=== PATIENT | female | born 1975 | race Caucasian/White ===

== ENCOUNTER 2022-02-05 02:18 | Inpatient (IN) | payer OTHER ==
[2022-02-05] MEDS ORDERED: SODIUM CHLORIDE 0.9% 1,000 ML IV STA ×2 (02:51→03:38)
[2022-02-05] MEDS ORDERED: KETOROLAC 15 MG/ML 1 ML VIAL IVP STA (02:51)
[2022-02-05] MEDS ORDERED: MORPHINE SULFATE 4 MG/ML SYRINGE IV STA (02:51)
[2022-02-05] MEDS ORDERED: ONDANSETRON 4 MG/2 ML VIAL IVP STA (02:51)
--- NOTE | 2022-02-05 02:53 | ED ---
Abdominal Pain HPI - General Chief Complaint: Abdominal Pain Stated Complaint: Back Pain, Nausea Time Seen by Provider: 02/05/22 02:20 Source: patient, RN notes reviewed, old records reviewed Mode of arrival: ambulatory Limitations: no limitations - History of Present Illness Initial Comments: This is a 46-year-old female DF for evaluation currently. Patient Dese for evaluation of abdominal pain flank pain. Severe with nausea vomiting. Sadness of pain tonight. No prior history of similar pain. Patient was seen at urgent care from an outside facility and transferred to our ER for evaluation regarding kidney stone. A she has CT scans showing positive kidney stone findings. No fevers persistent nausea vomiting pain is mildly improved MD Complaint: abdominal pain, flank pain -: hour(s) Location: RLQ, epigastric Radiation: RLQ, R flank Migration to: RLQ Severity: moderate Severity scale (1-10): 6 Quality: sharp Consistency: constant Improves With: nothing Worsens With: nothing Context: other (none) Associated Symptoms: nausea - Related Data Allergies Allergy/AdvReac Type Severity Reaction Status Date / Time Penicillins Allergy Rash/Hives Verified 02/05/22 02:28 Review of Systems ROS Statement: Those systems with pertinent positive or pertinent negative responses have been documented in the HPI. ROS Other: All systems not noted in ROS Statement are negative. Past Medical History Additional Past Medical History / Comment(s): kidney stone History of Any Multi-Drug Resistant Organisms: None Reported Past Surgical History: Section, Cholecystectomy, Tubal Ligation Additional Past Surgical History / Comment(s): uterine ablation Past Psychological History: No Psychological Hx Reported Smoking Status: Former smoker Past Alcohol Use History: None Reported Past Drug Use History: None Reported General Exam Limitations: no limitations General appearance: alert, in no apparent distress Head exam: Present: atraumatic, normocephalic, normal inspection Eye exam: Present: normal appearance, PERRL, EOMI. Absent: scleral icterus, conjunctival injection, periorbital swelling ENT exam: Present: normal exam, mucous membranes moist Neck exam: Present: normal inspection. Absent: tenderness, meningismus, lym phadenopathy Respiratory exam: Present: normal lung sounds bilaterally. Absent: respiratory distress, wheezes, rales, rhonchi, stridor Cardiovascular Exam: Present: regular rate, normal rhythm, normal heart sounds. Absent: systolic murmur, diastolic murmur, rubs, gallop, clicks GI/Abdominal exam: Present: soft, normal bowel sounds. Absent: distended, tenderness, guarding, rebound, rigid Extremities exam: Present: normal inspection, full ROM, normal capillary refill. Absent: tenderness, pedal edema, joint swelling, calf tenderness Back exam: Present: normal inspection Neurological exam: Present: alert, oriented X3, CN II-XII intact Psychiatric exam: Present: normal affect, normal mood Skin exam: Present: warm, dry, intact, normal color. Absent: rash Course Vital Signs 02/05/22 02:23 Temperature 98.6 F Pulse Rate 99 Respiratory 22 Rate Blood Pressure 119/69 O2 Sat by Pulse 100 Oximetry - Reevaluation(s) Reevaluation #1: 02/05/22 03:42 Medical record is reviewed Reevaluation #2: 02/05/22 03:42 Patient has adequate current pain control Reevaluation #3: 02/05/22 03:42 Patient informed results and questions answered - Consultations Consultation #1: Spoke with sound who agrees to admit this patient Medical Decision Making - Medical Decision Making 6 female DF for evaluation of severe abdominal pain of the pain is improved now he doesn't significantly large kidney stone as well as significant pancreatitis. Patient be admitted for pain control and pills status - Lab Data Result diagrams: 02/05/22 03:08 02/05/22 03:08 Lab Results 02/05/22 02/05/22 Range/Units 03:08 03:08 WBC 13.0 H (3.8-10.6) k/uL RBC 4.43 (3.80-5.40) m/uL Hgb 13.5 (11.4-16.0) gm/dL Hct 40.1 (34.0-46.0) % MCV 90.4 (80.0-100.0) fL MCH 30.4 (25.0-35.0) pg MCHC 33.7 (31.0-37.0) g/dL RDW 13.4 (11.5-15.5) % Plt Count 234 (150-450) k/uL MPV 7.9 Neutrophils % 86 % Lymphocytes % 8 % Monocytes % 5 % Eosinophils % 1 % Basophils % 1 % Neutrophils # 11.2 H (1.3-7.7) k/uL Lymphocytes # 1.0 (1.0-4.8) k/uL Monocytes # 0.6 (0-1.0) k/uL Eosinophils # 0.1 (0-0.7) k/uL Basophils # 0.1 (0-0.2) k/uL Sodium 134 L (137-145) mmol/L Potassium 3.6 (3.5-5.1) mmol/L Chloride 107 (98-107) mmol/L Carbon Dioxide 17 L (22-30) mmol/L Anion Gap 10 mmol/L BUN 19 H (7-17) mg/dL Creatinine 0.92 (0.52-1.04) mg/dL Est GFR (CKD-EPI)AfAm 87 (>60 ml/min/1.73 sqM) Est GFR (CKD-EPI)NonAf 75 (>60 ml/min/1.73 sqM) Glucose 123 H (74-99) mg/dL Calcium 8.7 (8.4-10.2) mg/dL Total Bilirubin 1.4 H (0.2-1.3) mg/dL AST 59 H (14-36) U/L ALT 33 (4-34) U/L Alkaline Phosphatase 65 (38-126) U/L Total Protein 6.5 (6.3-8.2) g/dL Albumin 3.9 (3.5-5.0) g/dL Amylase 308 H* (30-110) U/L Lipase 1709 H (23-300) U/L - Radiology Data Radiology results: report reviewed (CT head and pelvis does show 6 x 1.5 mm kidney stone) Disposition Clinical Impression: Acute pancreatitis, Abdominal pain, Calculus of kidney Disposition: ADMITTED IP TO THIS HOSP Condition: Good Is patient prescribed a controlled substance at d/c from ED?: No Referrals: Alyssa Chatterjee DO [Primary Care Provider] - 1-2 days
[2022-02-05 03:17] LABS: Basophils # (A) 0.1 k/uL (0-0.2); Basophils % (A) 1 %; Eosinophils # (A) 0.1 k/uL (0-0.7); Eosinophils % (A) 1 %; HCT 40.1 % (34.0-46.0); HGB 13.5 gm/dL (11.4-16.0); Lymphocytes % (A) 8 %; MCH 30.4 pg (25.0-35.0); MCHC 33.7 g/dL (31.0-37.0); MCV 90.4 fL (80.0-100.0); Mean Platelet Volume 7.9; Monocytes # (A) 0.6 k/uL (0-1.0); Monocytes % (A) 5 %; Neutrophils # (A) 11.2 k/uL (1.3-7.7); Neutrophils % (A) 86 %; Platelet Count 234 k/uL (150-450); RBC 4.43 m/uL (3.80-5.40); RDW 13.4 % (11.5-15.5)
[2022-02-05 03:29] LABS: Albumin 3.9 g/dL (3.5-5.0); Calcium 8.7 mg/dL (8.4-10.2); Potassium 3.6 mmol/L (3.5-5.1); Total Bilirubin 1.4 mg/dL (0.2-1.3); Total Protein 6.5 g/dL (6.3-8.2)
[2022-02-05] MEDS ORDERED: SODIUM CHLORIDE 0.9% 500 ML 500 ML IV STA (03:38)
[2022-02-05] MEDS ORDERED: LORazepam 2 MG/ML INJ IV PRN (03:39)
[2022-02-05] MEDS ORDERED: NALOXONE 0.4 MG/ML 1 ML VIAL IV PRN (03:39)
[2022-02-05] MEDS ORDERED: MORPHINE SULFATE 4 MG/ML SYRINGE IV PRN (03:39)
[2022-02-05 04:57] LABS: Appearance,Urine Cloudy (Clear); Bacteria,Urine Occasional /hpf; Bilirubin,Urine Negative (Negative); Blood,Urine Small (Negative); Color,Urine Yellow; Glucose,Urine (UA) Negative (Negative); Ketones,Urine Negative (Negative); Leukocyte Esterase,Urine Large (Negative); Mucus,Urine Rare /hpf; Nitrite,Urine Negative (Negative); PH, Urine 5.5 (5.0-8.0); Protein,Urine Negative (Negative); RBC,Urine 4 /hpf (0-5); Specific Gravity,Urine 1.008 (1.001-1.035); Squamous Epithelial Cell,Urine 5 /hpf (0-4); Urobilinogen,Urine <2.0 mg/dL (<2.0); WBC,Urine 43 /hpf (0-5)
[2022-02-05] MEDS: SODIUM CHLORIDE 0.9% 1,000 ML IV SCH ×3 (05:42→22:20)
[2022-02-05] MEDS: PANTOPRAZOLE 40 MG/10 ML VIAL IV SCH (08:19)
--- NOTE | 2022-02-05 10:05 | P.GSCN ---
History of Present Illness Consult date: 02/05/22 Reason for Consult: Right renal colic Requesting physician: Lauri Perdomo History of present illness: The patient is a 46-year-old white female with no prior history of urolithiasis. Yesterday morning, she experienced acute onset of right flank and mid back pain, radiating to the right groin. She has experienced associated nausea. She was initially evaluated at the [facility] [place]. A CT scan of th e abdomen and pelvis showed moderate right hydroureteronephrosis due to a 6 x 15 mm elongated right distal ureteral calculus. The study also revealed what appears to be 2 right lower pole renal calculi measuring 5 mm each. Review of Systems - Constitutional Reports chills, Denies fever - Gastrointestinal Reports abdominal pain, Reports nausea - Genitourinary Genitourinary: Reports flank pain, Reports urgency, Denies dysuria, Denies hematuria Past Medical History Additional Past Medical History / Comment(s): kidney stone History of Any Multi-Drug Resistant Organisms: None Reported Past Surgical History: Section, Cholecystectomy, Tubal Ligation, Uterine Ablation Additional Past Surgical History / Comment(s): uterine ablation Past Psychological History: No Psychological Hx Reported Smoking Status: Former smoker Past Alcohol Use History: None Reported Past Drug Use History: None Reported Medications and Allergies Allergies Allergy/AdvReac Type Severity Reaction Status Date / Time Penicillins Allergy Rash/Hives Verified 02/05/22 02:28 Surgical - Exam Vital Signs Temp Pulse Resp BP Pulse Ox 98.6 F 99 22 119/69 100 02/05/22 02:23 02/05/22 02:23 02/05/22 02:23 02/05/22 02:23 02/05/22 02:23 - General well developed, well nourished, no distress - Neck no masses, trachea midline - Respiratory normal respiratory effort - Abdomen Soft, non-distended, with no palpable mass. Mild right lower quadrant tenderness to palpation, without guarding or rebound. There is also moderate right CVA tenderness. - Psychiatric oriented to time, oriented to person, oriented to place, speech is normal, memory intact Results - Labs 02/05/22 03:08 02/05/22 03:08 Abnormal Lab Results - Last 24 Hours (Table) 02/05/22 02/05/22 02/05/22 Range/Units 03:08 03:08 04:43 WBC 13.0 H (3.8-10.6) k/uL Neutrophils # 11.2 H (1.3-7.7) k/uL Sodium 134 L (137-145) mmol/L Carbon Dioxide 17 L (22-30) mmol/L BUN 19 H (7-17) mg/dL Glucose 123 H (74-99) mg/dL Total Bilirubin 1.4 H (0.2-1.3) mg/dL AST 59 H (14-36) U/L Amylase 308 H* (30-110) U/L Lipase 1709 H (23-300) U/L Urine Appearance Cloudy H (Clear) Urine Blood Small H (Negative) Ur Leukocyte Esterase Large H (Negative) Urine WBC 43 H (0-5) /hpf Ur Squamous Epith Cells 5 H (0-4) /hpf Urine Bacteria Occasional H (None) /hpf Urine Mucus Rare H (None) /hpf Diabetes panel 02/05/22 Range/Units 03:08 Sodium 134 L (137-145) mmol/L Potassium 3.6 (3.5-5.1) mmol/L Chloride 107 (98-107) mmol/L Carbon Dioxide 17 L (22-30) mmol/L BUN 19 H (7-17) mg/dL Creatinine 0.92 (0.52-1.04) mg/dL Glucose 123 H (74-99) mg/dL Calcium 8.7 (8.4-10.2) mg/dL AST 59 H (14-36) U/L ALT 33 (4-34) U/L Alkaline Phosphatase 65 (38-126) U/L Total Protein 6.5 (6.3-8.2) g/dL Albumin 3.9 (3.5-5.0) g/dL Calcium panel 02/05/22 Range/Units 03:08 Calcium 8.7 (8.4-10.2) mg/dL Albumin 3.9 (3.5-5.0) g/dL Pituitary panel 02/05/22 Range/Units 03:08 Sodium 134 L (137-145) mmol/L Potassium 3.6 (3.5-5.1) mmol/L Chloride 107 (98-107) mmol/L Carbon Dioxide 17 L (22-30) mmol/L BUN 19 H (7-17) mg/dL Creatinine 0.92 (0.52-1.04) mg/dL Glucose 123 H (74-99) mg/dL Calcium 8.7 (8.4-10.2) mg/dL Adrenal panel 02/05/22 Range/Units 03:08 Sodium 134 L (137-145) mmol/L Potassium 3.6 (3.5-5.1) mmol/L Chloride 107 (98-107) mmol/L Carbon Dioxide 17 L (22-30) mmol/L BUN 19 H (7-17) mg/dL Creatinine 0.92 (0.52-1.04) mg/dL Glucose 123 H (74-99) mg/dL Calcium 8.7 (8.4-10.2) mg/dL Total Bilirubin 1.4 H (0.2-1.3) mg/dL AST 59 H (14-36) U/L ALT 33 (4-34) U/L Alkaline Phosphatase 65 (38-126) U/L Total Protein 6.5 (6.3-8.2) g/dL Albumin 3.9 (3.5-5.0) g/dL - Imaging CT scan - abdomen: report reviewed, image reviewed Assessment and Plan (1) Calculus of kidney Current Visit: Yes Status: Acute Code(s): N20.0 - CALCULUS OF KIDNEY SNOMED Code(s): 93721546 (2) Calculus of ureter Current Visit: Yes Status: Acute Code(s): N20.1 - CALCULUS OF URETER SNOMED Code(s): 08236745 (3) Hydronephrosis with renal and ureteral calculous obstruction Current Visit: Yes Status: Acute Code(s): N13.2 - HYDRONEPHROSIS WITH RENAL AND URETERAL CALCULOUS OBSTRUCTION SNOMED Code(s): 816335408 Plan: The patient has right hydronephrosis due to an obstructing right distal ureteral calculus. She also has additional right renal calculi. Amylase and lipase levels are elevated, consistent with pancreatitis. She has previously undergone a cholecystectomy and denies excessive alcohol consumption. Urinalysis is consistent with a possible UTI. A urine culture has been ordered, and she has received Rocephin. I have advised her to undergo cystoscopy with right ureteral stent insertion to relieve her right ureteral obstruction. The rationale for this has been discussed with her in detail, along with potential risks which include anesthesia, bleeding, infection, inability to place the stent, and ureteral injury. She is aware of the possible need for nephrostomy tube placement. She understands that she would subsequently require a secondary procedure consisting of ureteroscopy with laser lithotripsy at the time of stent removal. Time with Patient: Greater than 30
[2022-02-05] MEDS ORDERED: SODIUM CHLORIDE 0.9% 800 ML IV ONE (11:35)
--- NOTE | 2022-02-05 12:01 | P.OP ---
Date of Procedure: 02/05/22 Preoperative Diagnosis: Right hydronephrosis secondary to right ureteral calculus Postoperative Diagnosis: Same Procedure(s) Performed: Cystoscopy, right ureteral stent insertion Anesthesia: BELINDA Surgeon: Sachin Quick Estimated Blood Loss (ml): 0 IV fluids (ml): 200 Pathology: none sent Condition: stable Disposition: PACU Indications for Procedure: The patient is a 46-year-old white female with no prior history of urolithiasis. Yesterday morning, she experienced acute onset of right flank and mid back pain, radiating to the right groin. She has experienced associated nausea. She was initially evaluated at the [facility]. A CT scan of the abdomen and pelvis showed moderate right hydroureteronephrosis due to a 6 x 15 mm elongated right distal ureteral calculus. The study also revealed what appears to be 2 right lower pole renal calculi measuring 5 mm each. Urinalysis is suggestive of a possible UTI, and her pancreatic enzymes are elevated. She now comes for stent placement. Operative Findings: Impacted right ureteral calculus. Cloudy urine drained from right renal pelvis. Description of Procedure: The patient was taken to the operating room and placed in the dorsolithotomy position, with legs supported in Christopher stirrups. The external genitalia was prepped and draped sterilely. The 30 lens was used to introduce the 22-Gabonese Stortz cystoscopic sheath through the urethra and into the bladder under direct vision. The bladder was examined in its entirety. Both ureteral orifices were of normal anatomic location and configuration. No tumors or foreign bodies were seen. An angle-tip 0.035 inch Glidewire was passed through the cystoscope. The right ureteral orifice was cannulated, and the Glidewire was slowly advanced up to the renal pelvis. Resistance was met as the Glidewire passed beyond the obstructing calculus. A 22 cm, 6-Gabonese double-J ureteral stent was placed over the wire. Proper stent positioning was verified fluoroscopically and endoscopically. Cloudy urine drained through the stent. With the beak of the cystoscope immediately adjacent to the distal end of the stent, urine was collected and sent for culture and sensitivity. The bladder was emptied and the cystoscope removed. The patient tolerated the procedure well was taken to the recovery room in stable condition.
[2022-02-05] MEDS ORDERED: SODIUM CHLORIDE 0.9% 1,000 ML IV ONE ×2 (12:40)
[2022-02-05] MEDS ORDERED: MELATONIN 3 MG TABLET PO PRN (17:04)
[2022-02-05] MEDS ORDERED: CALCIUM CARBONATE 500 MG CHEWABLE PO PRN (17:04)
[2022-02-05] MEDS ORDERED: LACTULOSE 20 GM/30 ML CUP PO PRN (17:04)
--- NOTE | 2022-02-05 17:10 | P.HPIM ---
History of Present Illness H&P Date: 02/05/22 Chief Complaint: Right abdominal pain This is a very pleasant 46-year-old patient who follows with Dr. Alyssa Chatterjee. Patient is otherwise remarkable good health. Yesterday morning patient started having pain in the right flank posteriorly and pain started drinking down to the groin area. Progressively got worse. Also developed some nausea. Denied any fever and chills. Progressively got worse decided to come down. Computed tomography scan did show a stone in the right greater and the right kidney. Patient also having urinary frequency. Today patient was taken to the OR by Dr. wasserman. Right double-J stent was placed. Infected appearing urine was noted. Culture was sent. Patient was also was found to have an elevated amylase and lipase. Has no obvious risk factors. Patient was initially evaluated at [facility]. Computed tomography scan showed moderate right-sided hydronephrosis due to 6 x 15 mm elongated right distal ureter calculus. And a right lower pole renal calculi 5 mm each. Review of systems: GEN.: Tired EYES: None HEENT: None NECK: None RESPIRATORY: None CARDIOVASCULAR: None GASTROINTESTINAL: As above] GENITOURINARY: As above MUSCULOSKELETAL: None LYMPHATICS: None HEMATOLOGICAL: None PSYCHIATRY: None NEUROLOGICAL: None Past medical history to include: Kidney stone Social history: . Homemaker. No history of smoking and alcohol Family history: Reviewed, noncontributory to presentation Physical examination: VITAL SIGNS: 98.2, 88, 16, 98/67, 97% room air GENERAL: BMI 40.1, laying in bed, awake slightly tired. EYES: Pupils equal. Conjunctiva normal. HEENT: External appearance of nose and ears normal, oral cavity grossly normal. NECK: JVD not raised; masses not palpable. HEART: First and second heart sounds are normal; no edema. LUNGS: Respiratory rate normal; clear to auscultation. ABDOMEN: Soft, nontender, liver spleen not palpable, no masses palpable. PSYCH: Alert and oriented x3; mood and affect normal. MUSCULOSKELETAL:No Clubbing/cyanosis;muscles-grossly intact NEUROLOGICAL: Cranial nerves grossly intact; no facial asymmetry, power and sensation grossly intact. LYMPHATICS: No lymph nodes palpable in the axilla and neck INVESTIGATIONS, reviewed in the clinical context: White count 13 hemoglobin 13.5 platelets 234 potassium 3.6 BUN 19 creatinine 0.9 to total bilirubin 1.4 AST 59 ALT 33 amylase 308 lipase 11/19/2008 UA positive for leukoesterase WBC Assessment and plan: -Acute right moderate hydro unilateral-nephrosis from a 6 x 15 mm elongated right distal ureteral calculus. Status post double-J stent placement by Dr. wasserman. -Acute pyelonephritis/UTI from obstructive calculi in the right ureter. Cultures pending. IV ceftriaxone. IV fluid -Acute pancreatitis Rule out gallstone. Ultrasound gallbladder -Hyper bilirubin anemia could be from starvation. Check ultrasound gallbladder to rule out gallstones. In the setting of acute pancreatitis -Morbid obesity BMI 40.1 Weight loss measures Full liquid diet. Low-fat. IV ceftriaxone. IV fluids. Status post double-J stent placement. Gallbladder ultrasound. Given the complexity and severity of patient's condition expect the patient to be in the hospital at least for 2 overnights Past Medical History Additional Past Medical History / Comment(s): kidney stone History of Any Multi-Drug Resistant Organisms: None Reported Past Surgical History: Section, Cholecystectomy, Tubal Ligation, Uterine Ablation Additional Past Surgical History / Comment(s): uterine ablation Past Psychological History: No Psychological Hx Reported Smoking Status: Former smoker Past Alcohol Use History: None Reported Past Drug Use History: None Reported Medications and Allergies Home Medications Medication Instructions Recorded Confirmed Type No Known Home Medications 02/05/22 02/05/22 History Allergies Allergy/AdvReac Type Severity Reaction Status Date / Time Penicillins Allergy Rash/Hives Verified 02/05/22 10:58 Physical Exam Vitals: Vital Signs Temp Pulse Pulse Resp BP BP Pulse Ox 02/05/22 08:23 111 H 02/05/22 08:00 99.1 F 111 H 17 117/71 96 02/05/22 05:58 98.6 F 103 H 16 112/49 100 02/05/22 04:54 70 16 124/66 99 02/05/22 02:23 98.6 F 99 22 119/69 100 Intake and Output 02/04/22 02/05/22 02/05/22 22:59 06:59 14:59 Other: Voiding Method Toilet # Voids 0 Weight 99.337 kg Results CBC & Chem 7: 02/05/22 03:08 02/05/22 03:08 Labs: Abnormal Lab Results - Last 24 Hours (Table) 02/05/22 02/05/22 02/05/22 Range/Units 03:08 03:08 04:43 WBC 13.0 H (3.8-10.6) k/uL Neutrophils # 11.2 H (1.3-7.7) k/uL Sodium 134 L (137-145) mmol/L Carbon Dioxide 17 L (22-30) mmol/L BUN 19 H (7-17) mg/dL Glucose 123 H (74-99) mg/dL Total Bilirubin 1.4 H (0.2-1.3) mg/dL AST 59 H (14-36) U/L Amylase 308 H* (30-110) U/L Lipase 1709 H (23-300) U/L Urine Appearance Cloudy H (Clear) Urine Blood Small H (Negative) Ur Leukocyte Esterase Large H (Negative) Urine WBC 43 H (0-5) /hpf Ur Squamous Epith Cells 5 H (0-4) /hpf Urine Bacteria Occasional H (None) /hpf Urine Mucus Rare H (None) /hpf Thrombosis Risk Factor Assmnt - Choose All That Apply Any of the Below Risk Factors Present?: Yes Each Factor Represents 1 point: Age 41-60 years, Obesity (BMI >25) Thrombosis Risk Factor Assessment Total Risk Factor Score: 2 Thrombosis Risk Factor Assessment Level: Low Risk
[2022-02-05] MEDS: ENOXAPARIN 40 MG/0.4 ML SYRINGE SQ SCH (17:28)
--- NOTE | 2022-02-05 18:58 | US ---
EXAMINATION TYPE: US abdomen limited DATE OF EXAM: 02/05/2022 COMPARISON: CT CLINICAL HISTORY: Elevated bilirubin/acute pancreatitis. Elevated labs, GB removed EXAM MEASUREMENTS: Liver Length: 16.2 cm CBD: 0.3 cm Right Kidney: 11.0 x 5.0 x 4.5 cm Pancreas: wnl, tail obscured by overlying bowel gas Liver: Visualized portions appeared wnl Gallbladder: Surgically absent Evidence for sonographic Singh's sign: No CBD: wnl Right Kidney: Moderate hydro, lower pole gassed out IMPRESSION: Cholecystectomy. No dilated ducts.
[2022-02-05] MEDS: ACETAMINOPHEN TAB 325 MG TAB PO PRN (20:08)
[2022-02-05] MEDS: ONDANSETRON 4 MG/2 ML VIAL IVP PRN (20:09)
[2022-02-06 05:49] LABS: ALT 162 U/L (4-34); AST 133 U/L (14-36); African American GFR (CKD) >90 (>60 ml/min/1.73 sqM); Albumin 2.7 g/dL (3.5-5.0); Albumin/Globulin Ratio 1.1; Alkaline Phosphatase 118 U/L (38-126); Anion Gap 4 mmol/L; Blood Urea Nitrogen 8 mg/dL (7-17); Calcium 7.8 mg/dL (8.4-10.2); Carbon Dioxide 19 mmol/L (22-30); Chloride 113 mmol/L (98-107); Globulin 2.5 g/dL; Glucose 95 mg/dL (74-99); Non-African American GFR(CKD) >90 (>60 ml/min/1.73 sqM); Potassium 3.8 mmol/L (3.5-5.1); Sodium 136 mmol/L (137-145); Total Bilirubin 2.4 mg/dL (0.2-1.3); Total Protein 5.2 g/dL (6.3-8.2)
[2022-02-06] MEDS: ENOXAPARIN 40 MG/0.4 ML SYRINGE SQ SCH (07:27)
[2022-02-06] MEDS: SODIUM CHLORIDE 0.9% 1,000 ML IV SCH ×3 (08:37→21:11)
[2022-02-06] MEDS: PANTOPRAZOLE 40 MG/10 ML VIAL IV SCH (08:44)
--- NOTE | 2022-02-06 10:53 | P.PN ---
Progress Note - Text Progress Note Date: 02/06/22 The patient states that she is feeling better. She has a low-grade fever. Urine cultures are pending. Her liver function tests today are worse than they were yesterday. Pancreatic enzymes have not been repeated. Hepatic ultrasound was normal. From a urologic standpoint, I would suggest she continue to receive Rocephin until the urine cultures are completed. I discussed with her that following discharge, once she has completely recovered, arrangements will be made for her to undergo cystoscopy, right ureteral stent removal, right ureteroscopy with Holmium laser lithotripsy to remove her ureteral calculus and renal calculi.
[2022-02-06] MEDS ORDERED: MIDAZOLAM 2 MG/2 ML VIAL ONE (11:30)
[2022-02-06] MEDS ORDERED: PROPOFOL 10 MG/ML 20 ML VIAL IV ONE (11:30)
[2022-02-06] MEDS ORDERED: LIDOCAINE 1% INJ 10MG/ML (20 ML MDV) ONE (11:30)
[2022-02-06] MEDS ORDERED: fentaNYL (PF) 50 MCG/ML 2 ML AMP ONE (11:30)
[2022-02-06 11:55] LABS: Basophils # (A) 0.04 X 10*3/uL (0.00-0.10); Basophils % (A) 0.7 %; Eosinophils # (A) 0.02 X 10*3/uL (0.04-0.35); Eosinophils % (A) 0.4 %; HCT 32.9 % (37.2-46.3); HGB 10.5 g/dL (12.0-15.0); Immature Grans, Automated 0.4 %; Lymphocytes # (A) 0.61 X 10*3/uL (0.90-5.00); Lymphocytes % (A) 11.1 %; MCH 29.8 pg (27.0-32.0); MCHC 31.9 g/dL (32.0-37.0); MCV 93.5 fL (80.0-97.0); Mean Platelet Volume 11.3 fL (9.5-12.2); Monocytes # (A) 0.47 X 10*3/uL (0.20-1.00); Monocytes % (A) 8.5 %; NRBC Per 100 WBC 0 /100 WBCS (0.0-0.0); Neutrophils # (A) 4.35 X 10*3/uL (1.80-7.70); Neutrophils % (A) 78.9 %; Platelet Count 175 X 10*3/uL (140-440); RBC 3.52 X 10*6/uL (4.10-5.20); RDW 13.7 % (11.5-14.5); WBC 5.51 X 10*3/uL (4.50-10.00)
[2022-02-06 11:58] LABS: Amylase 26 U/L (23-121); Lipase 11 U/L (14-63)
--- NOTE | 2022-02-06 14:10 | FL ---
Fluoroscopy INDICATION: Pain FINDINGS: Fluoroscopy time: 25 seconds. Images obtained: 1. IMPRESSIONS: 1. Documentation of fluoroscopy.
[2022-02-06] MEDS: ACETAMINOPHEN TAB 325 MG TAB PO PRN (14:47)
--- NOTE | 2022-02-06 15:18 | P.PN ---
Progress Note - Text Progress Note Date: 02/06/22 Chief Complaint: Right abdominal pain This is a very pleasant 46-year-old patient who follows with Dr. Alyssa Chatterjee. Patient is otherwise remarkable good health. Yesterday morning patient started having pain in the right flank posteriorly and pain started drinking down to the groin area. Progressively got worse. Also developed some nausea. Denied any fever and chills. Progressively got worse decided to come down. Computed tomography scan did show a stone in the right greater and the right kidney. Patient also having urinary frequency. Today patient was taken to the OR by Dr. wasserman. Right double-J stent was placed. Infected appearing urine was noted. Culture was sent. Patient was also was found to have an elevated amylase and lipase. Has no obvious risk factors. Patient was initially evaluated at [facility]. Computed tomography scan showed moderate right-sided hydronephrosis due to 6 x 15 mm elongated right distal ureter calculus. And a right lower pole renal calculi 5 mm each. February 06: Abdominal pain better. Did tolerate a full liquid diet. 2 nausea vomiting. Some worsening of liver function. Cultures pending. IV ceftriaxone. Discussed with patient. Low-grade fever Active Medications Acetaminophen (Acetaminophen Tab 325 Mg Tab) 650 mg PO Q6HR PRN PRN Reason: Mild Pain or Fever > 100.5 Last Admin: 02/06/22 14:47 Dose: 650 mg Documented by: Calcium Carbonate/Glycine (Calcium Carbonate 500 Mg Chewable) 1,000 mg PO Q4HR PRN PRN Reason: Dyspepsia Enoxaparin Sodium (Enoxaparin 40 Mg/0.4 Ml Syringe) 40 mg SQ DAILY [facility] Last Admin: 02/06/22 07:27 Dose: 40 mg Documented by: Sodium Chloride (Saline 0.9%) 1,000 mls @ 75 mls/hr IV .[id number] [facility] Last Admin: 02/06/22 08:46 Dose: Not Given Documented by: Ceftriaxone Sodium 1 gm/ (Sodium Chloride) 50 mls @ 100 mls/hr IVPB Q12HR [facility]; Protocol Last Admin: 02/06/22 07:27 Dose: 100 mls/hr Documented by: Lactulose (Lactulose 20 Gm/30 Ml Cup) 20 gm PO DAILY PRN PRN Reason: Constipation Lorazepam (Lorazepam 2 Mg/Ml Inj) 0.5 mg IV Q6HR PRN PRN Reason: Anxiety Melatonin (Melatonin 3 Mg Tablet) 3 mg PO HS PRN PRN Reason: Insomnia Naloxone HCl (Naloxone 0.4 Mg/Ml 1 Ml Vial) 0.2 mg IV Q2M PRN PRN Reason: Opioid Reversal Ondansetron HCl (Ondansetron 4 Mg/2 Ml Vial) 4 mg IVP Q8HR PRN PRN Reason: Nausea And Vomiting Last Admin: 02/05/22 20:09 Dose: 4 mg Documented by: Pantoprazole Sodium (Pantoprazole 40 Mg/10 Ml Vial) 40 mg IV DAILY [facility] Last Admin: 02/06/22 08:44 Dose: 40 mg Documented by: Past medical history to include: Kidney stone Social history: . Homemaker. No history of smoking and alcohol Family history: Reviewed, noncontributory to presentation Physical examination: VITAL SIGNS: 99.7, 94, 16, 111/65, 96% room air GENERAL: Separate sitting up in bed, awake EYES: Pupils equal. Conjunctiva normal. HEENT: External appearance of nose and ears normal, oral cavity grossly normal. NECK: JVD not raised; masses not palpable. HEART: First and second heart sounds are normal; no edema. LUNGS: Respiratory rate normal; clear to auscultation. ABDOMEN: Soft, nontender, liver spleen not palpable, no masses palpable. PSYCH: Alert and oriented x3; mood and affect normal. MUSCULOSKELETAL:No Clubbing/cyanosis;muscles-grossly intact INVESTIGATIONS, reviewed in the clinical context: Abdominal ultrasound: Cholecystectomy. CBC normal. February 06: White count 5.5. Globin 10.5 platelets 175 potassium 3.8 bicarb 19 BUN 8 creatinine 0.75 total bilirubin 2.4 AST 133 ALT was 62 lipase 11 White count 13 hemoglobin 13.5 platelets 234 potassium 3.6 BUN 19 creatinine 0.9 to total bilirubin 1.4 AST 59 ALT 33 amylase 308 lipase 11/19/2008 UA positive for leukoesterase WBC Assessment and plan: -Acute right moderate hydro unilateral-nephrosis from a 6 x 15 mm elongated right distal ureteral calculus. Status post double-J stent placement by Dr. wasserman. -Acute pyelonephritis/UTI from obstructive calculi in the right ureter. Cultures pending. IV ceftriaxone. IV fluid -Acute pancreatitis: Improved Ultrasound gallbladder: Cholecystectomy. CBd normal. -Hyper bilirubin anemia could be from starvation/sepsis: Worsening. Ultrasound unremarkable. CBD normal -Worsening acute hepatitis, could be from infection Repeat labs. Clinically better -Morbid obesity BMI 40.1 Weight loss measures Continue IV ceftriaxone. Repeat LFTs. Discussed with the patient. Increase activity as tolerated. Cultures pending.
[2022-02-07] MEDS: ACETAMINOPHEN TAB 325 MG TAB PO PRN ×2 (07:31→23:49)
[2022-02-07] MEDS: ENOXAPARIN 40 MG/0.4 ML SYRINGE SQ SCH (07:32)
[2022-02-07 07:33] LABS: ALT 159 U/L (4-34); AST 94 U/L (14-36); African American GFR (CKD) >90 (>60 ml/min/1.73 sqM); Albumin 2.6 g/dL (3.5-5.0); Alkaline Phosphatase 132 U/L (38-126); Anion Gap 4 mmol/L; Blood Urea Nitrogen 4 mg/dL (7-17); Calcium 8.1 mg/dL (8.4-10.2); Carbon Dioxide 22 mmol/L (22-30); Chloride 111 mmol/L (98-107); Globulin 2.5 g/dL; Glucose 104 mg/dL (74-99); Non-African American GFR(CKD) >90 (>60 ml/min/1.73 sqM); Potassium 3.9 mmol/L (3.5-5.1); Sodium 137 mmol/L (137-145); Total Bilirubin 1.1 mg/dL (0.2-1.3); Total Protein 5.1 g/dL (6.3-8.2)
--- NOTE | 2022-02-07 09:08 | P.PN ---
Progress Note - Text Progress Note Date: 02/07/22 The patient feels much better this morning. She has had a low-grade fever. Laboratory values yesterday show normalization of her WBC count and pancreatic enzymes. Liver function test abnormalities are stable. The initial urine culture has shown greater than 100,000 mixed urogenital species. The urine culture obtained intraoperatively was negative. It is my impression that her condition is much improved. She may benefit from an additional 24 hours of hospitalization for IV antibiotics and monitoring of her liver function tests. I have advised her to increase ambulation in the event the low-grade fever is pulmonary in nature. I would also suggest she be discharged home on broad-spe ctrum antibiotics. She will follow up with me in 1 week.
[2022-02-07] MEDS: SODIUM CHLORIDE 0.9% 1,000 ML IV SCH ×2 (10:23→22:12)
--- NOTE | 2022-02-07 13:49 | P.PN ---
Progress Note - Text Progress Note Date: 02/07/22 Chief Complaint: Right abdominal pain This is a very pleasant 46-year-old patient who follows with Dr. Alyssa Chatterjee. Patient is otherwise remarkable good health. Yesterday morning patient started having pain in the right flank posteriorly and pain started drinking down to the groin area. Progressively got worse. Also developed some nausea. Denied any fever and chills. Progressively got worse decided to come down. Computed tomography scan did show a stone in the right greater and the right kidney. Patient also having urinary frequency. Today patient was taken to the OR by Dr. wasserman. Right double-J stent was placed. Infected appearing urine was noted. Culture was sent. Patient was also was found to have an elevated amylase and lipase. Has no obvious risk factors. Patient was initially evaluated at [facility]. Computed tomography scan showed moderate right-sided hydronephrosis due to 6 x 15 mm elongated right distal ureter calculus. And a right lower pole renal calculi 5 mm each. February 06: Abdominal pain better. Did tolerate a full liquid diet. 2 nausea vomiting. Some worsening of liver function. Cultures pending. IV ceftriaxone. Discussed with patient. Low-grade fever February 07: Abdominal pain much improved. Eating well. Had low-grade fever last night. Discussed with the patient. Keeping her on for 1 more day of IV antibiotic. LFTs are started coming down. Slowly Active Medications Acetaminophen (Acetaminophen Tab 325 Mg Tab) 650 mg PO Q6HR PRN PRN Reason: Mild Pain or Fever > 100.5 Last Admin: 02/07/22 07:31 Dose: 650 mg Documented by: Calcium Carbonate/Glycine (Calcium Carbonate 500 Mg Chewable) 1,000 mg PO Q4HR PRN PRN Reason: Dyspepsia Enoxaparin Sodium (Enoxaparin 40 Mg/0.4 Ml Syringe) 40 mg SQ DAILY [facility] Last Admin: 02/07/22 07:32 Dose: 40 mg Documented by: Sodium Chloride (Saline 0.9%) 1,000 mls @ 75 mls/hr IV .[id number] [facility] Last Admin: 02/07/22 10:23 Dose: Not Given Documented by: Ceftriaxone Sodium 1 gm/ (Sodium Chloride) 50 mls @ 100 mls/hr IVPB Q12HR [facility]; Protocol Last Admin: 02/07/22 07:32 Dose: 100 mls/hr Documented by: Lactulose (Lactulose 20 Gm/30 Ml Cup) 20 gm PO DAILY PRN PRN Reason: Constipation Lorazepam (Lorazepam 2 Mg/Ml Inj) 0.5 mg IV Q6HR PRN PRN Reason: Anxiety Melatonin (Melatonin 3 Mg Tablet) 3 mg PO HS PRN PRN Reason: Insomnia Naloxone HCl (Naloxone 0.4 Mg/Ml 1 Ml Vial) 0.2 mg IV Q2M PRN PRN Reason: Opioid Reversal Ondansetron HCl (Ondansetron 4 Mg/2 Ml Vial) 4 mg IVP Q8HR PRN PRN Reason: Nausea And Vomiting Last Admin: 02/05/22 20:09 Dose: 4 mg Documented by: Past medical history to include: Kidney stone Social history: . Homemaker. No history of smoking and alcohol Family history: Reviewed, noncontributory to presentation Physical examination: VITAL SIGNS: T-max 100.4, 84, 18, 143/80, 95% room air GENERAL: Sitting up in chair, awake EYES: Pupils equal. Conjunctiva normal. HEENT: External appearance of nose and ears normal, oral cavity grossly normal. NECK: JVD not raised; masses not palpable. HEART: First and second heart sounds are normal; no edema. LUNGS: Respiratory rate normal; clear to auscultation. ABDOMEN: Soft, nontender, liver spleen not palpable, no masses palpable. PSYCH: Alert and oriented x3; mood and affect normal. MUSCULOSKELETAL:No Clubbing/cyanosis;muscles-grossly intact INVESTIGATIONS, reviewed in the clinical context: January 30: Potassium 3.9 creatinine 0.68 total bilirubin 1.1 AST 94 ALT 159 Abdominal ultrasound: Cholecystectomy. CBC normal. February 06: White count 5.5. Globin 10.5 platelets 175 potassium 3.8 bicarb 19 BUN 8 creatinine 0.75 total bilirubin 2.4 AST 133 ALT was 62 lipase 11 White count 13 hemoglobin 13.5 platelets 234 potassium 3.6 BUN 19 creatinine 0.9 to total bilirubin 1.4 AST 59 ALT 33 amylase 308 lipase 11/19/2008 UA positive for leukoesterase WBC Assessment and plan: -Acute right moderate hydro unilateral-nephrosis from a 6 x 15 mm elongated right distal ureteral calculus.: Improving slowly Status post double-J stent placement by Dr. wasserman. -Acute pyelonephritis/UTI from obstructive calculi in the right ureter. Clinically improving. Cultures negative. IV ceftriaxone. IV fluid -Acute pancreatitis: Improved Ultrasound gallbladder: Cholecystectomy. CBd normal. -Hyper bilirubin anemia could be from starvation/sepsis: Worsening. Ultrasound unremarkable. CBD normal -Worsening acute hepatitis, could be from infection Repeat labs. Clinically better -Morbid obesity BMI 40.1 Weight loss measures Continue IV ceftriaxone. Repeat LFTs. Discussed with the patient. Hopefully discharge in 24 hours.
[2022-02-07] MEDS: ONDANSETRON 4 MG/2 ML VIAL IVP PRN (20:17)
[2022-02-08 02:22] VITALS: RESP 16
[2022-02-08] MEDS: ENOXAPARIN 40 MG/0.4 ML SYRINGE SQ SCH (10:32)
[2022-02-08] MEDS: ONDANSETRON 4 MG/2 ML VIAL IVP PRN (10:40)
[2022-02-08] MEDS: ACETAMINOPHEN TAB 325 MG TAB PO PRN (10:40)
[2022-02-08] MEDS: SODIUM CHLORIDE 0.9% 1,000 ML IV SCH (10:42)
[2022-02-08 11:31] VITALS: BP 130/74; PULSE 64; TEMP 97.9
[2022-02-08 11:47] LABS: African American GFR (CKD) >90 (>60 ml/min/1.73 sqM); Anion Gap 6 mmol/L; Blood Urea Nitrogen 7 mg/dL (7-17); Calcium 7.9 mg/dL (8.4-10.2); Carbon Dioxide 21 mmol/L (22-30); Chloride 112 mmol/L (98-107); Glucose 111 mg/dL (74-99); Non-African American GFR(CKD) >90 (>60 ml/min/1.73 sqM); Potassium 3.6 mmol/L (3.5-5.1); Sodium 139 mmol/L (137-145)
--- NOTE | 2022-02-08 13:04 | P.DS ---
Providers Date of admission: 02/05/22 03:39 Expected date of discharge: 02/08/22 Attending physician: Lauri Perdomo Consults: 02/05/22 03:39 Consult Physician Routine Consulting Provider: Sachin Quick Consult Reason/Comments: stone Do you want consulting provider notified?: Yes Primary care physician: Alyssa Chatterjee [facility] Course: Chief Complaint: Right abdominal pain This is a very pleasant 46-year-old patient who follows with Dr. Alyssa Chatterjee. Patient is otherwise remarkable good health. Yesterday morning patient started having pain in the right flank posteriorly and pain started drinking down to the groin area. Progressively got worse. Also developed some nausea. Denied any fever and chills. Progressively got worse decided to come down. Computed tomography scan did show a stone in the right greater and the right kidney. Patient also having urinary frequency. Today patient was taken to the OR by Dr. quick. Right double-J stent was placed. Infected appearing urine was noted. Culture was sent. Patient was also was found to have an elevated amylase and lipase. Has no obvious risk factors. Patient was initially evaluated at [facility]. Computed tomography scan showed moderate right-sided hydronephrosis due to 6 x 15 mm elongated right distal ureter calculus. And a right lower pole renal calculi 5 mm each. Patient is continued IV ceftriaxone. Pain improved. Appetite good. Cultures came back negative. Patient also had acute pancreatitis that was treated conservatively. Resolved February 08: Eating well. No pain. No fever. Cultures have been negative. Patient to follow-up with urology outpatient. Care was discussed questions were answered. Complete 7 more days of Ceftin. Discussion and discharge planning more than 35 minutes Past medical history to include: Kidney stone Social history: . Homemaker. No history of smoking and alcohol Family history: Reviewed, noncontributory to presentation Physical examination: VITAL SIGNS: 97.9, 64, 16, 1:30/74, 97% room air GENERAL: Sitting up in chair, comfortable EYES: Pupils equal. Conjunctiva normal. HEENT: External appearance of nose and ears normal, oral cavity grossly normal. NECK: JVD not raised; masses not palpable. HEART: First and second heart sounds are normal; no edema. LUNGS: Respiratory rate normal; clear to auscultation. ABDOMEN: Soft, nontender, liver spleen not palpable, no masses palpable. PSYCH: Alert and oriented x3; mood and affect normal. MUSCULOSKELETAL:No Clubbing/cyanosis;muscles-grossly intact INVESTIGATIONS, reviewed in the clinical context: February 08: Potassium 3.6 creatinine 0.56 Abdominal ultrasound: Cholecystectomy. CBC normal. February 06: White count 5.5. Globin 10.5 platelets 175 potassium 3.8 bicarb 19 BUN 8 creatinine 0.75 total bilirubin 2.4 AST 133 ALT was 62 lipase 11 White count 13 hemoglobin 13.5 platelets 234 potassium 3.6 BUN 19 creatinine 0.9 to total bilirubin 1.4 AST 59 ALT 33 amylase 308 lipase 11/19/2008 UA positive for leukoesterase WBC Assessment and plan: -Acute right moderate hydro unilateral-nephrosis from a 6 x 15 mm elongated right distal ureteral calculus.: Bed to Status post double-J stent placement by Dr. quick. Ceftin 500 mg twice a day for 7 days -Acute pyelonephritis/UTI from obstructive calculi in the right ureter. Clinically improving. Cultures negative. IV ceftriaxone. IV fluid. Discharged on Ceftin 500 mg twice daily for 7 days -Acute pancreatitis: Improved Ultrasound gallbladder: Cholecystectomy. CBd normal. -Hyper bilirubin anemia could be from starvation/sepsis: Better Ultrasound unremarkable. CBD normal -Worsening acute hepatitis, could be from infection: Improved Repeat labs. Clinically better -Morbid obesity BMI 40.1 Weight loss measures Disposition: Home Plan - Discharge Summary Discharge Rx Participant: Yes New Discharge Prescriptions: New Cefuroxime Axetil [Ceftin] 500 mg PO BID #14 tab Discharge Medication List Cefuroxime Axetil [Ceftin] 500 mg PO BID #14 tab 02/08/22 [Rx] Follow up Appointment(s)/Referral(s): Sachin Quick MD [STAFF PHYSICIAN] - 02/15/22 10:40 am Alyssa Chatterjee DO [Primary Care Provider] - 02/11/22 11:00 am Patient Instructions/Handouts: Cefuroxime (By mouth), Pancreatitis (DC), Kidney Stones (DC), Acute Abdominal Pain (DC) Discharge Disposition: HOME SELF-CARE
--- NOTE | 2022-02-11 06:42 | CDI ---
Documentation Clarification Form Date: 02/11/22 From: Neelam Jimenez Admit Date: 02/05/2022 03:39:00 AM Patient Name: Treasure Daugherty Visit Number: [id number] Discharge Date: 02/08/2022 12:25:00 PM ATTENTION: The Clinical Documentation Specialists (CDI) and [facility] Coding Staff appreciate your assistance in clarifying documentation. Please respond to the clarification below the line at the bottom and electronically sign. The CDI & [facility] Coding staff will review the response and follow-up if needed. Please note: Queries are made part of the Legal Health Record. If you have any questions, please contact the author of this message via ITS. Dr. Lauri Perdomo, The patient presented with the following clinical indicators. Additional clarification regarding the etiology/cause of the clinical indicators is requested. History/Risk Factors: hx calculi, hx cholecystectomy, morbid obesity w BMI 40.1 Clinical Indicators: Acute right moderate hydro unilateral-nephrosis from right distal ureteral calculus. Acute pyelonephritis. Acute pancreatitis. Hyperbilirubinemia could be from starvation/sepsis. DOS 02/05/22 WBC: 13.0 Neutrophils: 11.2 Lactic acid: none available Blood cultures: none Vitals signs: T 98.6/100.1, P 103, R 22, BP 119/69 & 124/66 02/06 TEMP 99.7, 100.4, 99.8 Treatment: IV Rocephin, IV fluids In your professional opinion, please clarify if these findings signify one of the following conditions: [ ] Sepsis POA [ ] Sepsis, Not POA [ ] Sepsis ruled out [ ] SIRS, without underlying infectious process [ ] Other, please specify [ ] Unable to determine SIRS Criteria: 2 or more of the following may indicate SIRS -Temperature < 96.8F (36C) or > 101.0F (38.3C) -Heart Rate > 90 bpm -Respiratory Rate > 20 breaths/min or PaCO2 < 32 mmHg -White Blood Cell Count > 12,000 or < 4,000 cells/mm3 or > 10% bands Sepsis, POA MTDD
== END 2022-02-08 12:25 | disposition home or self-care (01) | DRG 853 ==
LOC: EC 02:18 → 4SSUR 03:39
PROVIDERS: ADMIT Hospitalist; ATTEND Hospitalist
PROC: 0T768DZ Dilation of Right Ureter with Intraluminal Device, Via Natural or Artificial Opening Endoscopic (ICD-10-PCS; principal; 2022-02-05 11:12)
DX: A41.9 Sepsis, unspecified organism (principal); K85.90 Acute pancreatitis without necrosis or infection, unspecified; N13.6 Pyonephrosis; N20.1 Calculus of ureter; B17.9 Acute viral hepatitis, unspecified; Z68.41 Body mass index [BMI] 40.0-44.9, adult; E66.01 Morbid (severe) obesity due to excess calories; G47.00 Insomnia, unspecified; E80.6 Other disorders of bilirubin metabolism; K59.00 Constipation, unspecified; Z87.19 Personal history of other diseases of the digestive system; F41.9 Anxiety disorder, unspecified; Z87.442 Personal history of urinary calculi; Z90.49 Acquired absence of other specified parts of digestive tract; Z98.51 Tubal ligation status; Z98.891 History of uterine scar from previous surgery; Z87.42 Personal history of other diseases of the female genital tract; Z87.891 Personal history of nicotine dependence; Z98.890 Other specified postprocedural states; Z88.0 Allergy status to penicillin
CPT/HCPCS: 36415; 76705; 80048; 80053; 81001; 81025; 82150; 83690; 85025; 87086; 96374; 96375; 99284

== ENCOUNTER → 2022-02-24 | Outpatient (CLI) | payer OTHER ==
[2022-02-24 14:30] LABS: Basophils # (A) 0.08 X 10*3/uL (0.00-0.10); Eosinophils # (A) 0.33 X 10*3/uL (0.04-0.35); Eosinophils % (A) 4.1 %; HCT 41.3 % (37.2-46.3); HGB 12.9 g/dL (12.0-15.0); Immature Grans, Automated 0.7 %; Lymphocytes # (A) 2.03 X 10*3/uL (0.90-5.00); Lymphocytes % (A) 25.2 %; MCH 29.2 pg (27.0-32.0); MCHC 31.2 g/dL (32.0-37.0); MCV 93.4 fL (80.0-97.0); Mean Platelet Volume 10.6 fL (9.5-12.2); Monocytes % (A) 8.7 %; NRBC Per 100 WBC 0 /100 WBCS (0.0-0.0); Neutrophils # (A) 4.84 X 10*3/uL (1.80-7.70); Neutrophils % (A) 60.3 %; Platelet Count 300 X 10*3/uL (140-440); RBC 4.42 X 10*6/uL (4.10-5.20); RDW 12.8 % (11.5-14.5); WBC 8.04 X 10*3/uL (4.50-10.00)
[2022-02-24 17:01] LABS: African American GFR (CKD) 121.6 (60.0-200.0); Albumin 4.2 g/dL (3.8-4.9); Albumin/Globulin Ratio 2.09 (1.60-3.17); Anion Gap 11.7 mmol/L (10.00-18.00); BUN/Creat Ratio 29.12 Ratio (12.00-20.00); Blood Urea Nitrogen 19.8 mg/dL (9.0-27.0); Calcium 9.2 mg/dL (8.7-10.3); Carbon Dioxide 21.1 mmol/L (20.0-27.5); Non-African American GFR(CKD) 104.9 (60.0-200.0); Potassium 4.5 mmol/L (3.5-5.5); Total Bilirubin 0.6 mg/dL (0.30-1.20); Total Protein 6.2 g/dL (6.2-8.2)
== END | disposition home or self-care (01) ==
LOC: LABPAT 09:14
PROVIDERS: ATTEND Urology
DX: Z01.812 Encounter for preprocedural laboratory examination (principal); N20.0 Calculus of kidney; N20.1 Calculus of ureter
CPT/HCPCS: 36415; 80053; 85025; 87086

== ENCOUNTER 2022-03-03 09:02 | Day surgery (SDC) | payer OTHER ==
--- NOTE | 2022-02-28 16:48 | P.GSHP ---
History of Present Illness H&P Date: 02/19/22 Chief Complaint: Right renal colic The patient is a 46-year-old white female with no prior history of urolithiasis. She experienced acute onset of right flank and mid back pain, radiating to the right groin, associated with nausea. She was initially evaluated at the [facility] [place]. A CT scan of the abdomen and pelvis showed moderate right hydroureteronephrosis due to a 6 x 15 mm elongated right distal ureteral calculus. The study also revealed what appears to be 2 right lower pole renal calculi measuring 5 mm each. She was subsequently hospitalized to [facility]. She underwent right ureteral stent insertion. Cultures were negative. Her pancreatic enzymes were elevated at the time of admission, but normalized. Her liver function tests remained elevated but have since normalized. Her pain has essentially resolved. - Constitutional Constitutional: Denies chills, Denies fever - Gastrointestinal Gastrointestinal: Denies nausea, Denies vomiting - Genitourinary (Female) Genitourinary: Reports flank pain, Reports kidney stones, Denies dysuria Past Medical History Additional Past Medical History / Comment(s): kidney stone History of Any Multi-Drug Resistant Organisms: None Reported Past Surgical History: Section, Cholecystectomy, Tubal Ligation, Uterine Ablation Additional Past Surgical History / Comment(s): uterine ablation, right ureteral stent insertion Past Psychological History: No Psychological Hx Reported Smoking Status: Former smoker Past Alcohol Use History: None Reported Past Drug Use History: None Reported Medications and Allergies Home Medications Medication Instructions Recorded Confirmed Type Cefuroxime Axetil [Ceftin] 500 mg PO BID #14 tab 02/08/22 Rx Allergies Allergy/AdvReac Type Severity Reaction Status Date / Time Penicillins Allergy Rash/Hives Verified 02/05/22 10:58 Surgical - Exam - General well developed, well nourished, no distress - Respiratory normal respiratory effort - Abdomen Abdomen: soft, non tender, no guarding, no rigid, no rebound - Psychiatric oriented to time, oriented to person, oriented to place, speech is normal, memory intact Results - Imaging CT scan - abdomen: report reviewed, image reviewed Assessment and Plan (1) Calculus of ureter Status: Acute Code(s): N20.1 - CALCULUS OF URETER SNOMED Code(s): 27441611 (2) Calculus of kidney Status: Acute Code(s): N20.0 - CALCULUS OF KIDNEY SNOMED Code(s): 52612020 Plan: Cystoscopy, right ureteral stent removal, right ureteroscopy with Holmium laser lithotripsy and possible stone basketing. The procedure has been reviewed in detail with the patient. She is aware of potential risks, which include anesthesia, bleeding, infection, and ureteral injury.
[2022-03-01 14:34] VITALS: BMI 40.2
[~2022-03-03 09:02] MED LIST: DEXAMETHASONE SOD PHOSPHATE 4 MG/ML 1 ML VIAL IV ONE; GENTAMICIN 120 MG in SODIUM CHLORIDE 0.9% 100 ML IVPB PRN; HYDROmorphone 0.5 MG/0.5 ML SYRINGE IVP PRN; LACTATED RINGERS 1,000 ML IV SCH; ONDANSETRON 4 MG/2 ML VIAL IVP ONE
--- NOTE | 2022-03-03 09:40 | XR ---
EXAMINATION TYPE: XR KUB DATE OF EXAM: 03/03/2022 COMPARISON: NONE HISTORY: Pain TECHNIQUE: One view abdominal series FINDINGS: The osseous structures are intact. The bowel gas pattern is nonspecific. Right-sided ureteral stent noted with 2 calcifications of both measuring a diameter of approximately 3 mm overlying the lower ri ght kidney. Surgical clips right upper quadrant. Hypertrophic change along the inferior left pubic ra mus appears chronic.. IMPRESSION: 1. Right ureteral stent with two small sub-5 mm lower pole right renal calculi.
[2022-03-03 09:42] VITALS: RESP 18
[2022-03-03] MEDS ORDERED: LIDOCAINE 1% INJ 10MG/ML (20 ML MDV) ONE (11:12)
[2022-03-03] MEDS ORDERED: PROPOFOL 10 MG/ML 20 ML VIAL IV ONE (11:12)
[2022-03-03] MEDS ORDERED: MIDAZOLAM 2 MG/2 ML VIAL ONE (11:12)
[2022-03-03] MEDS ORDERED: KETOROLAC 15 MG/ML 1 ML VIAL ONE (11:12)
[2022-03-03] MEDS ORDERED: fentaNYL (PF) 50 MCG/ML 2 ML AMP ONE (11:12)
[2022-03-03] MEDS ORDERED: LACTATED RINGERS 1,000 ML IV ONE (12:46)
--- NOTE | 2022-03-03 13:01 | FL ---
EXAMINATION TYPE: FL guidance operating room DATE OF EXAM: 03/03/2022 HISTORY: Fluoroscopy time 4 seconds of fluoroscopy provided. IMPRESSION: 1. Fluoroscopy time.
[2022-03-03 13:06] VITALS: TEMP 99
[2022-03-03] MEDS ORDERED: ONDANSETRON 4 MG/2 ML VIAL IVP ONE (13:35)
[2022-03-03 13:54] VITALS: PULSE 94
[2022-03-03 14:04] VITALS: BP 111/53
--- NOTE | 2022-03-04 12:04 | P.OP ---
Date of Procedure: 03/03/22 Preoperative Diagnosis: Right ureteral calculus, right renal calculi Postoperative Diagnosis: Same Procedure(s) Performed: Cystoscopy, right ureteral stent removal, right ureteroscopy with Holmium laser lithotripsy and stone basketing Anesthesia: BELINDA Surgeon: Sachin Quick Estimated Blood Loss (ml): 5 IV fluids (ml): 800 Pathology: other (Calculus fragments, sent for chemical analysis) Condition: stable Disposition: PACU Indications for Procedure: The patient is a 46-year-old white female with no prior history of urolithiasis. She experienced acute onset of right flank and mid back pain, radiating to the right groin, associated with nausea. She was initially evaluated at the [facility] [place]. A CT scan of the abdomen and pelvis showed moderate right hydroureteronephrosis due to a 6 x 15 mm elongated right distal ureteral calculus. The study also revealed what appears to be 2 right lower pole renal calculi measuring 5 mm each. She was subsequently hospitalized to [facility]. She underwent right ureteral stent insertion. Cultures were negative. Her pancreatic enzymes were elevated at the time of admission, but normalized. Her liver function tests remained elevated but have since normalized. Her pain has essentially resolved. Operative Findings: Right distal ureteral calculus, right lower pole renal calculi, all fragmented completely. Description of Procedure: The patient was taken to the operating room and placed in the dorsolithotomy position, with legs supported in Christopher stirrups. The external genitalia was prepped and draped sterilely. The 30 lens was used to introduce the 21-Palauan Nash cystoscopic sheath through the urethra and into the bladder under direct vision. The bladder was examined in its entirety. The distal end of the right ureteral stent was visualized. The left ureteral orifice appeared normal. No tumors or foreign bodies were seen. Grasping forceps were used to grasp the distal end of the right ureteral stent, which was removed along with the cystoscope. The Nash semirigid ureteroscope was advanced into the bladder, and the right ureteral orifice was cannulated. The ureteroscope was slowly advanced under direct vision until a calculus was seen within the distal ureter. However, and measured only 6-8 mm in size, smaller than what had been suggested on CT scan. The 200 micron Holmium laser probe was passed through the ureteroscope, and lithotripsy was performed. The calculus fragmented readily. A 1.9-Palauan nitinol basket was used to remove all of the ureteral calculus fragments. The ureteroscope was then advanced up to the ureteropelvic junction. No additional calculi were seen, and there was no evidence of ureteral trauma. The semirigid ureteroscope was removed, and the [employer] flexible ureteroscope was advanced into the bladder. The right ureteral orifice was cannulated, and the ureteroscope was slowly advanced under direct vision, up to the right renal pelvis. Each calyx was examined. Within a lower pole calyx several calculi were seen. The nitinol basket was used to grasp the smaller of the calculi, which were repositioned into a mid pole calyx. Laser lithotripsy was then performed to fragment these calculi within the mid pole calyx, and the largest of the calculi was treated within the lower pole calyx. Lithotripsy was continued until the calculi had been reduced to dust, other than several small fragments which were removed using the nitinol basket. The ureteroscope was slowly withdrawn under direct vision. There was no evidence of ureteral trauma. The patient tolerated the procedure well and was taken to the recovery room in stable condition. [facility] [place]: Procedure Acuity: Elective Stone Size and Location: 6 mm, right distal ureter Ureteral Dilation: No Ureteral Access Sheath Used: No Stone Sent for Analysis: Yes All Stones/Fragments Were Removed with a Basket: No Complications: No Preoperative Antibiotics Given: Yes Stent Placed: No Discharge Medications: None
== END 2022-03-03 14:20 | disposition home or self-care (01) ==
LOC: OR 09:02
PROVIDERS: ATTEND Urology
DX: N13.2 Hydronephrosis with renal and ureteral calculous obstruction (principal); Z87.891 Personal history of nicotine dependence; Z88.0 Allergy status to penicillin; Z98.890 Other specified postprocedural states; Z98.891 History of uterine scar from previous surgery; Z90.49 Acquired absence of other specified parts of digestive tract; Z98.51 Tubal ligation status
CPT/HCPCS: 81025; 82365; 74018; 52353; J2250; J1100; J0690; J2405; J2001; J3010; J1580; J1885; J2704